=== PATIENT | male | born 1965 | race Caucasian/White ===

== ENCOUNTER → 2017-04-25 | Outpatient (CLI) | payer BC ==
--- NOTE | 2017-04-26 09:45 | RADIOLOGY REPORT PS360 ---
KNEE-3 VIEWS-RT, KNEE-3 VIEWS-RT, KNEE-3 VIEWS-LT HISTORY: BRAD KNEE PAIN pain Patient Age: 51 years: Male Ordering Physician: Cory Miranda MD COMPARISON: No studies prior to today. TECHNIQUE: 3 views right knee radiographs 3 views left knee radiographs RIGHT KNEE 3 views . Generous Joint effusion suprapatella bursa clearly evident. Mild narrowing of the medial compartment on this nonweightbearing film suggesting degenerative changes here and chondral thinning/loss. Early marginal osteophytes most evident about medial margin medial compartment and to lesser degree patellofemoral joint. LEFT KNEE 3 views Suspect small joint effusion on left Joint space narrowing at medial compartment. Again noted suggesting early degenerative changes here. Early sharpening joint margins with early marginal osteophytes about medial compartment and also to lesser to lesser degree about the margins of patellofemoral joint. . Bones well mineralized at both knees no obvious osteochondral defect IMPRESSION: Developing degenerative changes at both knees] evident at the medial compartment. With these features slightly more pronounced at the medial compartment right knee than the left. Bilateral effusion at suprapatellar bursa: Right knee joint effusion is larger than the left.
== END ==
LOC: RAD 15:03
DX: M25.561 Pain in right knee (principal); M25.562 Pain in left knee